=== PATIENT | female | born 1995 | race African-American/Black ===

== ENCOUNTER → 2018-09-22 | Outpatient (CLI) | payer OTHER | LOC: MHCPAIN 10:25 | DX: G89.29 Other chronic pain (principal); M47.817 Spondylosis without myelopathy or radiculopathy, lumbosacral region; M53.3 Sacrococcygeal disorders, not elsewhere classified | CPT/HCPCS: G0463 ==

== ENCOUNTER → 2018-10-01 | Outpatient (CLI) | payer OTHER | LOC: MHCPAIN 09:02 | DX: M47.817 Spondylosis without myelopathy or radiculopathy, lumbosacral region (principal); M54.16 Radiculopathy, lumbar region | CPT/HCPCS: J1040; Q9967 ==

== ENCOUNTER → 2018-11-09 | Outpatient (CLI) | payer OTHER | LOC: MHCPAIN 10:07 | DX: G89.29 Other chronic pain (principal); M47.817 Spondylosis without myelopathy or radiculopathy, lumbosacral region; M53.3 Sacrococcygeal disorders, not elsewhere classified | CPT/HCPCS: G0463 ==

== ENCOUNTER → 2018-11-19 | Outpatient (CLI) | payer OTHER | LOC: MHCPAIN | DX: M53.3 Sacrococcygeal disorders, not elsewhere classified (principal); M47.817 Spondylosis without myelopathy or radiculopathy, lumbosacral region | CPT/HCPCS: G0260; J1040; Q9967 ==

== ENCOUNTER → 2019-01-11 | Outpatient (CLI) | payer OTHER | LOC: MHCPAIN 09:47 | DX: G89.29 Other chronic pain (principal); M47.817 Spondylosis without myelopathy or radiculopathy, lumbosacral region; M53.3 Sacrococcygeal disorders, not elsewhere classified | CPT/HCPCS: G0463 ==

== ENCOUNTER → 2019-04-06 | Outpatient (CLI) | payer OTHER | LOC: MHCPAIN 12:54 | DX: G89.29 Other chronic pain (principal); M47.817 Spondylosis without myelopathy or radiculopathy, lumbosacral region; M53.3 Sacrococcygeal disorders, not elsewhere classified | CPT/HCPCS: G0463 ==

== ENCOUNTER 2019-12-06 09:34 | Day surgery (SDC) | payer OTHER ==
[~2019-12-06] VITALS: Ht 157.5 cm; Wt 63.3 kg
[2019-12-06 09:53] VITALS: BP 115/81; PULSE 61; TEMP 98
[2019-12-06] MEDS ORDERED: PROAIR HFA0.09 MG/AC IH (09:57)
[2019-12-06] MEDS ORDERED: RT ADVAIR 128 DISKUS IH (09:57)
[2019-12-06] MEDS ORDERED: REFRESH PLUS 00.4 M1 OP (09:58)
[2019-12-06] MEDS ORDERED: VITAMIN D250 MCG PO ×2 (09:58→09:59)
[2019-12-06] MEDS ORDERED: CYMBALTA 60MG60 MG PO (09:58)
[2019-12-06] MEDS ORDERED: CAFERGOT 100 MG1 TAB PO (09:59)
[2019-12-06] MEDS ORDERED: LUNESTA3 MG PO (10:00)
[2019-12-06] MEDS ORDERED: RELAFEN750 MG PO (10:00)
[2019-12-06] MEDS ORDERED: AJOVY225 MG/1.5 SQ (10:01)
[2019-12-06] MEDS ORDERED: PROTONIX 40MG T40 MG PO (10:01)
[2019-12-06] MEDS ORDERED: ADVIL200 MG PO (10:01)
[2019-12-06] MEDS ORDERED: ZANAFLEX 4MG TAB4 MG PO (10:02)
[2019-12-06 12:05] VITALS: BP 126/92; PULSE 79
--- NOTE | 2019-12-06 12:05 | NUR ---
pt to [facility] via cart from [facility] room, pt walked to chair, awake and alert. call light in reach, no c/o, takes juice
--- NOTE | 2019-12-06 12:20 | NUR ---
in earlier to visit with pt on results of EGD, no c/o or requests
[2019-12-06 12:22] VITALS: BP 110/90; PULSE 87
[2019-12-06 12:35] VITALS: BP 110/76; PULSE 80
--- NOTE | 2019-12-06 12:45 | NUR ---
reviewed discharge inst. with pt and family/friend member in room, reviewed activity for today, precautions and followup with Dr office on results with verbal understanding. iv d'cd intact, pt up and dressed, discharged via w/c to car at 1305
== END 2019-12-06 13:05 | disposition home or self-care (01) ==
LOC: SDCO 09:34
DX: K22.70 Barrett's esophagus without dysplasia (principal); K21.9 Gastro-esophageal reflux disease without esophagitis; F41.9 Anxiety disorder, unspecified; F32.9 Major depressive disorder, single episode, unspecified; K59.00 Constipation, unspecified; Z88.8 Allergy status to other drugs, medicaments and biological substances
CPT/HCPCS: J2250; J3010; J7030